=== PATIENT | female | born 1950 | race Caucasian/White ===

== ENCOUNTER 2023-06-27 04:08 | Day surgery (SDC) | payer OTHER, BC ==
[2023-06-23 13:42] VITALS: BMI 29.2
[2023-06-27] MEDS ORDERED: LIDOCAINE HCL 1%, 10 MG/ML (20ML VIAL) ONE (11:20)
[2023-06-27] MEDS ORDERED: ceFAZolin SODIUM 1 GM VIAL IVPB ONE (12:17)
[2023-06-27] MEDS ORDERED: MIDAZOLAM HCL 2 MG/2 ML SINGLE DOSE VIAL ONE (12:21)
[2023-06-27] MEDS ORDERED: FENTANYL CITRATE/PF 50 MCG/ML VIAL ONE ×2 (12:21→13:34)
[2023-06-27] MEDS ORDERED: ACETAMINOPHEN INJECTION 100 ML IVPB ONE (12:24)
[2023-06-27] MEDS ORDERED: LIDOCAINE HCL 1%, 10 MG/ML (20ML VIAL) INF ONE ×3 (12:25)
[2023-06-27] MEDS ORDERED: oxyCODONE HCL 5 MG TABLET PO PRN (12:57)
[2023-06-27] MEDS ORDERED: LACTATED RINGERS SOLUTION 1,000 ML IV SCH (13:00)
[2023-06-27 14:13] VITALS: TEMP 97.3
[2023-06-27 15:17] VITALS: RESP 20
[2023-06-27 15:18] VITALS: BP 135/78; PULSE 66
== END 2023-06-27 14:55 | disposition home or self-care (01) ==
LOC: JASU-SURG 04:08
PROVIDERS: ATTEND Surgery
PROC: 0HBT0ZX Excision of Right Breast, Open Approach, Diagnostic (ICD-10-PCS; principal; 2023-06-27 12:30)
DX: C50.911 Malignant neoplasm of unspecified site of right female breast (principal); Z17.0 Estrogen receptor positive status [ER+]
CPT/HCPCS: 19281; 88307-TC; 88342-TC; 94760; A4648

== ENCOUNTER 2023-07-03 04:11 | Day surgery (SDC) | payer OTHER, BC ==
[2023-06-30 10:01] VITALS: BMI 29.2
[2023-07-03] MEDS ORDERED: ISOSULFAN BLUE 50 MG/5 ML VIAL SQ ONE (10:34)
[2023-07-03] MEDS ORDERED: LIDOCAINE HCL 1%, 10 MG/ML (20ML VIAL) ONE (10:34)
[2023-07-03] MEDS ORDERED: FENTANYL CITRATE/PF 50 MCG/ML VIAL ONE ×6 (11:02→13:25)
[2023-07-03] MEDS ORDERED: MIDAZOLAM HCL 2 MG/2 ML SINGLE DOSE VIAL ONE (11:02)
[2023-07-03] MEDS ORDERED: ceFAZolin SODIUM 1 GM VIAL IVPB ONE (11:40)
[2023-07-03] MEDS ORDERED: LIDOCAINE HCL 1%, 10 MG/ML (50 mL VIAL) SQ ONE ×2 (11:50)
[2023-07-03] MEDS ORDERED: oxyCODONE HCL 5 MG TABLET PO PRN (12:50)
[2023-07-03] MEDS ORDERED: ONDANSETRON 4 MG/2 ML VIAL IVPUSH PRN (12:50)
[2023-07-03] MEDS ORDERED: LACTATED RINGERS SOLUTION 1,000 ML IV SCH (13:00)
[2023-07-03] MEDS ORDERED: ACETAMINOPHEN INJECTION 100 ML IVPB ONE (13:25)
[2023-07-03] MEDS ORDERED: ACETAMINOPHEN 1000 MG/100 ML BAG IVPB ONE (14:10)
[2023-07-03] MEDS ORDERED: oxyCODONE HCL 5 MG TABLET ONE (14:34)
[2023-07-03 15:31] VITALS: BP 132/80; PULSE 74; RESP 18; TEMP 97.5
== END 2023-07-03 15:25 | disposition home or self-care (01) ==
LOC: JASU-SURG 04:11
PROVIDERS: ATTEND Surgery
PROC: C71L1ZZ Planar Nuclear Medicine Imaging of Upper Chest Lymphatics using Technetium 99m (Tc-99m) (ICD-10-PCS; 2023-07-03)
PROC: 0HBT0ZZ Excision of Right Breast, Open Approach (ICD-10-PCS; principal; 2023-07-03 10:30)
PROC: 07B50ZX Excision of Right Axillary Lymphatic, Open Approach, Diagnostic (ICD-10-PCS; 2023-07-03 10:30)
DX: C50.911 Malignant neoplasm of unspecified site of right female breast (principal)
CPT/HCPCS: 78195-TC; 88307-TC; 88342-TC; 94760; A9541